=== PATIENT | female | born 1940 | race Caucasian/White ===

== ENCOUNTER 2016-04-28 09:30 | Emergency (ER) | payer MEDICARE, OTHER ==
[~2016-04-28] VITALS: Ht 160 cm; Wt 61.0 kg
[~2016-04-28 09:30] MED LIST: AMLO5 PO; ASPI1TAB69 PO; DORZ2SOL15; LEVO88TA2 PO; LUMI0.01; SIMV10TA PO; TIMO0.5S30; TRAM50TA PO; VALS1TAB70 PO
[2016-04-28 09:33] VITALS: BP 161/88; PULSE 79; RESP 16; TEMP 97.6; O2SAT 100
[2016-04-28] MEDS ORDERED: GUAN2TAB PO (09:52)
[2016-04-28] MEDS ORDERED: NORV2.5T PO (09:52)
[2016-04-28] MEDS ORDERED: NAPR500 PO (09:52)
[2016-04-28] MEDS ORDERED: ROBA500T PO (09:52)
--- NOTE | 2016-04-28 09:57 | PD ---
HPI Chief Complaint: Musculoskeletal Complaint Time Seen by Provider: 09:40 Travel History International Travel<30 days: No Contact w/Intl Traveler<30days: No Traveled to known affect area: No History of Present Illness HPI Patient is a 75-year-old female who presents to emergency room with complaints of left-sided scapula pain and back pain. Patient reports that she has had chronic pain to this area for the past few years, reports that she had similar pains two years ago and the symptoms resolved on its own. Reports that recently , she began to have return of pain to the same area. Reports pain to her left scapula which radiates down her left lower back Reports that she has seen her primary care doctor who had sent her for studies including MRIs, reports that "they can't find why I'm having this much pain to this area." Reports that she did follow up with a card painter who told her that they could not do anything for her pain. Patient reports that pain has been worse over the past weekend, she did go to urgent care yesterday and was prescribed naproxen and ribaxin - reports no relief os symptoms with these medications. Patient reports that she did call her pcp, but no one called her back. Reports no new trauma or no new injuries. Patient denies chest pain/sob. PFSH Past Medical History Hx Anticoagulant Therapy: Yes (81 mg asa) Cancer: No Cardiovascular Problems: Yes (htn) Diabetes: No Glaucoma: No Hepatitis: No Hiatal Hernia: No Hypertension: Yes Respiratory: No Thyroid Disease: Yes Menopausal: Yes Past Surgical History Eye Surgery: Yes (CATARACT EXT LEFT EYE) Pacemaker: No Other Surgery: Yes Social History Alcohol Use: Yes (OCC) Tobacco Use: No Allergies-Medications (Allergen,Severity, Reaction): Coded Allergies: Hayde (Verified Allergy, Severe, HAYDE D-ONLY SUPPRESSES BREATHING, ) Sulfa (Verified Allergy, Severe, COUGHING, SOB, DROWSY, H/A, 04/28/16) Tamiflu (Verified Allergy, Severe, Nausea/Vomiting, 04/28/16) Reported Meds & Prescriptions Reported Meds & Active Scripts Active Reported Naprosyn (Naproxen) 500 Mg Tab 500 Mg PO BID Robaxin (Methocarbamol) 500 Mg Tab 500 Mg PO TID Guanfacine (Guanfacine HCl) 2 Mg Tab 3 Mg PO HS Do not crush, chew or divide tablet. Take with a meal. Norvasc (Amlodipine Besylate) 2.5 Mg Tab 2.5 Mg PO DAILY Simvastatin 10 Mg Tab 10 Mg PO HS Levothyroxine (Levothyroxine Sodium) 88 Mcg Tab 88 Mcg PO DAILY Aspirin 81 Mg Tabdr 81 Mg PO DAILY Tramadol (Tramadol HCl) 50 Mg Tab 50 Mg PO Q4H PRN Valsartan 320 Mg Tab 320 Mg PO DAILY Timolol Opth Drops 0.5 % Soln Lumigan Opth Drops (Bimatoprost) 0.01% Soln Review of Systems General / Constitutional: No: Fever Eyes: No: Visual changes HENT: No: Headaches Cardiovascular: No: Chest Pain or Discomfort, Palpitations, Irregular Rhythm, Tachycardia, Diaphoresis Respiratory: No: Shortness of Breath Gastrointestinal: No: Abdominal Pain Genitourinary: No: Dysuria Musculoskeletal: Positive: Pain (left sided scapula pain/back pain) Skin: No Rash Neurologic: No: Weakness Psychiatric: No: Depression Endocrine: No: Polydipsia Hematologic/Lymphatic: No: Easy Bruising Physical Exam Narrative GENERAL: No acute distress, nontoxic SKIN: Warm and dry. HEAD: Atraumatic. Normocephalic. EYES: Pupils equal and round. No injection or drainage. ENT: No nasal bleeding or discharge. Mucous membranes pink and moist. NECK: Trachea midline. No JVD. CARDIOVASCULAR: Regular rate and rhythm. No murmur appreciated. RESPIRATORY: No accessory muscle use. Clear to auscultation. Breath sounds equal bilaterally. GASTROINTESTINAL: Abdomen soft, non-tender, nondistended. Hepatic and splenic margins not palpable. MUSCULOSKELETAL: No obvious deformities. No clubbing. No cyanosis. No edema. NEUROLOGICAL: Awake and alert. Motor grossly within normal limits. Normal speech. PSYCHIATRIC: Patient anxious on exam Data Data Last Documented VS Vital Signs Date Time Temp Pulse Resp B/P Pulse Ox O2 Delivery O2 Flow Rate FiO2 04/28/16 10:35 74 18 137/74 98 Room Air 04/28/16 09:33 97.6 Orders Chest, Pa & Lat (04/28/16 09:47) Acetamin-Hydrocod 325-5 Mg ([place] 5-325 (04/28/16 10:00) Diazepam (Valium) (04/28/16 10:00) MDM Medical Decision Making Medical Screen Exam Complete: Yes Emergency Medical Condition: Yes Interpretation(s) Vital Signs Date Time Temp Pulse Resp B/P Pulse Ox O2 Delivery O2 Flow Rate FiO2 04/28/16 09:33 97.6 79 16 161/88 100 Differential Diagnosis acute on chronic back pain, aortic dissection, muscle strain Narrative Course Patient is a 75-year-old female with complaints of acute on chronic left-sided scapula pain, back pain. Patient has been having this pain for the past few years, reports that she has been following up with her primary care doctor as well as pain management with no resolution of symptoms. Patient with reports of increased pain over the past few days. Patient with point tenderness to her left scapula, vital signs are stable. Nontoxic on evaluation, patient with most likely musculoskeletal pain. Plan to obtain x-ray of the chest. Will give patient muscle relaxers and pain medications as these have helped in the past with her symptoms. Will continue to monitor patient. Last Impressions Chest X-Ray 04/28/16 0947 Signed Impressions: Service Date/Time: Thursday, April 28, 2016 09:59 - CONCLUSION: No acute disease. No significant change has occurred. Berny Swain MD Patient reevaluated, patient reports that she feels much better. Patient reports complete resolution of symptoms at this time. Patient will follow-up with her primary care doctor and will return to ER as needed. Patient appreciative care. Diagnosis Primary Impression: Muscle strain Additional Impression: Chronic pain Qualified Code: G89.4 - Chronic pain syndrome Patient Instructions: Narcotic given in the ED, General Instructions Med/Other Pt SpecificInfo: Prescription(s) given Scripts Ibuprofen 600 Mg [id number] Mg PO Q6H PRN (Pain/Inflammation) #40 TAB Ref 0 Prov:Monica Laguerre DO 04/28/16 Hydrocodone-Acetaminophen (Lortab)5-325 Mg Tab1 Tab PO Q6H PRN (PAIN) #10 TAB Ref 0 Prov:Monica Laguerre DO 04/28/16 Diazepam (Valium)2 Mg Tab2 Mg PO BID PRN (SPASM) 7 Days Ref 0 Prov:Monica Laguerre DO 04/28/16 Disposition: 01 DISCHARGE HOME Condition: Stable Monica Laguerre DO Apr 28, 2016 09:57
[2016-04-28] MEDS ORDERED: ACETAMINOPHEN/HYDROcodone 325 MG/5 MG TAB PO ONE (10:00)
[2016-04-28] MEDS ORDERED: DIAZEPAM 2 MG TAB PO ONE (10:00)
--- NOTE | 2016-04-28 10:27 | RADHPO ---
EXAM DATE/TIME: 04/28/2016 09:59 [facility] COMPARISON: CHEST SINGLE AP, March 08, 2016, 20:50. INDICATIONS : Left side posterior chest wall pain, no known injury MEDICAL HISTORY : None. SURGICAL HISTORY : None. ENCOUNTER: Initial ACUITY: 4 - 6 days PAIN SCORE: 10/10 LOCATION: Left posterior chest FINDINGS: PA and lateral views of the chest demonstrate the lungs to be symmetrically aerated without evidence of mass, infiltrate or effusion. There is a stable calcified granuloma in the right apex. There is hy peraeration of both lung beard. The cardiomediastinal contours are unremarkable. Osseous structures are intact. No significant changes. CONCLUSION: No acute disease. No significant change has occurred. Berny Swain MD on April 28, 2016 at 10:24 Board Certified Radiologist. This report was verified electronically.
[2016-04-28 10:35] VITALS: BP 137/74; PULSE 74; RESP 18; O2SAT 98
[2016-04-28] MEDS ORDERED: IBUP-232 PO (10:39)
[2016-04-28] MEDS ORDERED: DIAZ2 PO (10:39)
[2016-04-28] MEDS ORDERED: HYDR-3533 PO (10:39)
[2016-05-13] MEDS ORDERED: DORZ2SOL15 LEFT EYE (10:18)
[2016-07-03] MEDS ORDERED: AMLO5TAB2 (08:46)
[2016-07-03] MEDS ORDERED: GUAN1TAB (08:46)
[2016-07-03] MEDS ORDERED: TRAV0.00 (08:46)
[2016-07-03] MEDS ORDERED: TRAM50TA (08:46)
[2016-07-03] MEDS ORDERED: METH500T3 (08:46)
[2016-07-03] MEDS ORDERED: NAPR500T (08:46)
[2016-07-03] MEDS ORDERED: DIAZ2TAB (08:46)
[2016-07-03] MEDS ORDERED: HYDR12.56 (08:46)
[2016-07-03] MEDS ORDERED: GABA300C5 PO (13:02)
[2016-07-03] MEDS ORDERED: LIDO5DIS35 TOPICAL (13:08)
[2016-09-02] MEDS ORDERED: GABA300C5 PO (13:15)
[2016-09-16] MEDS ORDERED: AMLO10TA2 PO (10:30)
[2016-09-16] MEDS ORDERED: ASPI81TA5 PO (10:30)
== END 2016-04-28 10:48 | disposition home or self-care (01) ==
LOC: PHED 09:30
DX: G89.4 Chronic pain syndrome (principal)
CPT/HCPCS: 71020; 99283

== ENCOUNTER 2016-05-10 07:53 | Emergency (ER) | payer MEDICARE, OTHER ==
[~2016-05-10] VITALS: Ht 160 cm; Wt 62.4 kg
[~2016-05-10 07:53] MED LIST changes: -AMLO5 PO; +DIAZ2 PO; -DORZ2SOL15; +GUAN2TAB PO; +HYDR-3533 PO; +IBUP-232 PO; +NAPR500 PO; +NORV2.5T PO; +ROBA500T PO
[2016-05-10 07:56] VITALS: BP 141/83; PULSE 80; RESP 16; TEMP 97.4; O2SAT 100
[2016-05-10 08:11] VITALS: O2SAT 100
[2016-05-10 08:14] VITALS: BP 177/91; PULSE 77; RESP 18; O2SAT 100
[2016-05-10] MEDS ORDERED: ONDANSETRON HCL 4 MG/2 ML VIAL IVP ONE (08:15)
[2016-05-10] MEDS ORDERED: SODIUM CHLORIDE 0.9% FLUSH 5 ML FLUSH IVF PRN (08:15)
[2016-05-10] MEDS ORDERED: DIAZEPAM 5 MG TAB PO ONE (08:15)
[2016-05-10] MEDS ORDERED: SODIUM CHLORID 0.9% 500 ML INJ 500 ML IV ONE (08:15)
[2016-05-10] MEDS ORDERED: MECLIZINE HCL 25 MG TAB PO ONE (08:15)
--- NOTE | 2016-05-10 08:16 | PD ---
HPI Chief Complaint: Dizziness Time Seen by Provider: 08:03 Travel History International Travel<30 days: No Contact w/Intl Traveler<30days: No Traveled to known affect area: No History of Present Illness HPI The patient is a 75-year-old female who presents to the emergency department for dizziness. The patient states her dizziness started yesterday. The dizziness is described as lightheadedness, worse when she turns her head to the left and right, and was associated with one fall yesterday. The patient is unsure if she had a loss of consciousness with her fall yesterday. The patient does state she had an episode of nausea and vomiting with her dizziness yesterday. The patient does have a history of similar symptoms in the past which she states was related to an inner ear problem and treated with medications. The patient does have a history of hypertension and hyperlipidemia , denies any known history of CVA/TIA. The patient denies any difficulty with speech, memory, cognitive skills, upper/lower extremity weakness, numbness, or tingling. The patient's symptoms are intermittent, worse with movement, slightly alleviated at rest. The patient's primary physician is Dr. Roy/ [facility] Past Medical History Hx Anticoagulant Therapy: Yes (BABY ASA DAILY) Cancer: No Cardiovascular Problems: Yes (HTN, CHOL) High Cholesterol: Yes Diabetes: No (PRE) Diminished Hearing: No Glaucoma: No Hepatitis: No Hiatal Hernia: No Hypertension: Yes Respiratory: No Thyroid Disease: Yes ?: Not Menopausal: Yes Past Surgical History Eye Surgery: Yes (CATARACT EXT LEFT EYE) Hysterectomy: No Pacemaker: No Other Surgery: Yes Social History Alcohol Use: No Tobacco Use: No Allergies-Medications (Allergen,Severity, Reaction): Coded Allergies: Hayde (Verified Allergy, Severe, HAYDE D-ONLY SUPPRESSES BREATHING, 01/14) Sulfa (Verified Allergy, Severe, COUGHING, SOB, DROWSY, H/A, 05/10/16) Tamiflu (Verified Allergy, Severe, Nausea/Vomiting, 05/10/16) Reported Meds & Prescriptions Reported Meds & Active Scripts Active Ibuprofen 600 Mg Tab 600 Mg PO Q6H PRN Lortab (Hydrocodone-Acetaminophen) 5-325 Mg Tab 1 Tab PO Q6H PRN Reported Guanfacine (Guanfacine HCl) 2 Mg Tab 3 Mg PO HS Do not crush, chew or divide tablet. Take with a meal. Norvasc (Amlodipine Besylate) 2.5 Mg Tab 2.5 Mg PO DAILY Simvastatin 10 Mg Tab 10 Mg PO HS Levothyroxine (Levothyroxine Sodium) 88 Mcg Tab 88 Mcg PO DAILY Aspirin 81 Mg Tabdr 81 Mg PO DAILY Valsartan 320 Mg Tab 320 Mg PO DAILY Timolol Opth Drops 0.5 % Soln Lumigan Opth Drops (Bimatoprost) 0.01% Soln Review of Systems Except as stated in HPI: all other systems reviewed are Neg HENT: Positive: Lightheadedness Cardiovascular: No: Chest Pain or Discomfort, Palpitations, Tachycardia, Diaphoresis, Dyspnea on exertion Respiratory: No: Shortness of Breath Gastrointestinal: Positive: Nausea, Vomiting, No: Abdominal Pain Musculoskeletal: No: Weakness Neurologic: Positive: Dizziness, No: Weakness, Focal Abnormalities, Coordination Problem, Headache, Change in Mentation, Slurred Speech, Paresthesia , Sensory Disturbance Physical Exam Narrative GENERAL: Awake, alert, pleasant 75-year-old female who appears her stated age and is in no acute respiratory distress. Dizziness elicited with turning her head left and right. SKIN: Warm and dry. HEAD: Atraumatic. Normocephalic. EYES: Pupils equal and round. Pupils are 2 mm bilateral. EOMs are intact. No obvious nystagmus. ENT: No nasal bleeding or discharge. Mucous membranes pink and moist. NECK: Trachea midline. No JVD. CARDIOVASCULAR: Regular rate and rhythm. No murmur appreciated. RESPIRATORY: No accessory muscle use. Clear to auscultation. Breath sounds equal bilaterally. GASTROINTESTINAL: Abdomen soft, non-tender, nondistended. No rebound tenderness. MUSCULOSKELETAL: No obvious deformities. No clubbing. No cyanosis. No edema. NEUROLOGICAL: Awake and alert. No obvious cranial nerve deficits. Motor grossly within normal limits. Normal speech. No dysarthria noted. Alert and oriented 4. No drift of the upper or lower extremities. Smile is symmetric. Sensation is symmetric and equal bilaterally in the face, arms, and legs. Finger to nose is normal. PSYCHIATRIC: Appropriate mood and affect; insight and judgment normal. Data Data Last Documented VS Vital Signs Date Time Temp Pulse Resp B/P Pulse Ox O2 Delivery O2 Flow Rate FiO2 05/10/16 08:58 64 157/76 83 155/74 05/10/16 08:14 Room Air 05/10/16 08:14 18 100 05/10/16 07:56 97.4 Orders Electrocardiogram (05/10/16 08:09) Complete Blood Count With Diff (05/10/16 08:09) Comprehensive Metabolic Panel (05/10/16 08:09) Magnesium (Mg) (05/10/16 08:09) Ckmb (Isoenzyme) Profile (05/10/16 08:09) Troponin I (05/10/16 08:09) Ct Brain W/O Iv Contrast(Rout) (05/10/16 08:09) Ecg Monitoring (05/10/16 08:09) Iv Access Insert/Monitor (05/10/16 08:09) Oximetry (05/10/16 08:09) Meclizine (Antivert) (05/10/16 08:15) Ondansetron Inj (Zofran Inj) (05/10/16 08:15) Sodium Chloride 0.9% Flush (Ns Flush) (05/10/16 08:15) Orthostatic Vital Signs (05/10/16 08:09) Sodium Chlorid 0.9% 500 Ml Inj (Ns 500 M (05/10/16 08:15) Diazepam (Valium) (05/10/16 08:15) Labs Laboratory Tests Test 05/10/16 08:15 White Blood Count 5.4 TH/MM3 Red Blood Count 4.77 MIL/MM3 Hemoglobin 14.8 GM/DL Hematocrit 44.6 % Mean Corpuscular Volume 93.4 FL Mean Corpuscular Hemoglobin 31.0 PG Mean Corpuscular Hemoglobin 33.2 % Concent Red Cell Distribution Width 12.9 % Platelet Count 317 TH/MM3 Mean Platelet Volume 7.5 FL Neutrophils (%) (Auto) 65.4 % Lymphocytes (%) (Auto) 24.3 % Monocytes (%) (Auto) 6.8 % Eosinophils (%) (Auto) 2.2 % Basophils (%) (Auto) 1.3 % Neutrophils # (Auto) 3.5 TH/MM3 Lymphocytes # (Auto) 1.3 TH/MM3 Monocytes # (Auto) 0.4 TH/MM3 Eosinophils # (Auto) 0.1 TH/MM3 Basophils # (Auto) 0.1 TH/MM3 CBC Comment DIFF FINAL Differential Comment Sodium Level 143 MEQ/L Potassium Level 4.1 MEQ/L Chloride Level 106 MEQ/L Carbon Dioxide Level 25.3 MEQ/L Anion Gap 12 MEQ/L Blood Urea Nitrogen 11 MG/DL Creatinine 0.77 MG/DL Estimat Glomerular Filtration 73 ML/MIN Rate Random Glucose 111 MG/DL Calcium Level 9.0 MG/DL Magnesium Level 2.4 MG/DL Total Bilirubin 0.5 MG/DL Aspartate Amino Transf 24 U/L (AST/SGOT) Alanine Aminotransferase 19 U/L (ALT/SGPT) Alkaline Phosphatase 92 U/L Total Creatine Kinase 50 U/L Troponin I LESS THAN 0.02 NG/ML Total Protein 7.4 GM/DL Albumin 3.8 GM/DL MDM Medical Decision Making Medical Screen Exam Complete: Yes Emergency Medical Condition: Yes Medical Record Reviewed: Yes Interpretation(s) EKG reveals normal sinus rhythm with a rate of 70. Left bundle branch block. No significant changes when compared to EKG performed on March 08, 2016. Laboratory Tests Test 05/10/16 08:15 White Blood Count 5.4 TH/MM3 Red Blood Count 4.77 MIL/MM3 Hemoglobin 14.8 GM/DL Hematocrit 44.6 % Mean Corpuscular Volume 93.4 FL Mean Corpuscular Hemoglobin 31.0 PG Mean Corpuscular Hemoglobin 33.2 % Concent Red Cell Distribution Width 12.9 % Platelet Count 317 TH/MM3 Mean Platelet Volume 7.5 FL Neutrophils (%) (Auto) 65.4 % Lymphocytes (%) (Auto) 24.3 % Monocytes (%) (Auto) 6.8 % Eosinophils (%) (Auto) 2.2 % Basophils (%) (Auto) 1.3 % Neutrophils # (Auto) 3.5 TH/MM3 Lymphocytes # (Auto) 1.3 TH/MM3 Monocytes # (Auto) 0.4 TH/MM3 Eosinophils # (Auto) 0.1 TH/MM3 Basophils # (Auto) 0.1 TH/MM3 CBC Comment DIFF FINAL Differential Comment Sodium Level 143 MEQ/L Potassium Level 4.1 MEQ/L Chloride Level 106 MEQ/L Carbon Dioxide Level 25.3 MEQ/L Anion Gap 12 MEQ/L Blood Urea Nitrogen 11 MG/DL Creatinine 0.77 MG/DL Estimat Glomerular Filtration 73 ML/MIN Rate Random Glucose 111 MG/DL Calcium Level 9.0 MG/DL Magnesium Level 2.4 MG/DL Total Bilirubin 0.5 MG/DL Aspartate Amino Transf 24 U/L (AST/SGOT) Alanine Aminotransferase 19 U/L (ALT/SGPT) Alkaline Phosphatase 92 U/L Total Creatine Kinase 50 U/L Troponin I LESS THAN 0.02 NG/ML Total Protein 7.4 GM/DL Albumin 3.8 GM/DL CT the brain reveals mild periventricular and subcortical white matter small vessel ischemic changes bilaterally. No acute infarct, acute hemorrhage, mass effect, or extra-axial fluid collections. Last Impressions Head CT 05/10/16 0809 Signed Impressions: Service Date/Time: Tuesday, May 10, 2016 08:36 - CONCLUSION: 1. Mild periventricular and subcortical white matter small vessel ischemic changes bilaterally. 2. No acute infarct, acute hemorrhage, mass effect or extra- axial fluid collections. Zhou Nye MD Differential Diagnosis Differential diagnosis includes labyrinthitis, Mnire's disease, benign positional vertigo, hyponatremia, CVA, TIA, cerebellar infarct, intracranial hemorrhage, arrhythmia. Narrative Course IV was established, labs were drawn and sent, and the patient was placed on cardiac telemetry monitoring and continuous pulse oximetry monitoring. EKG was ordered and interpreted. Orthostatic vital signs were obtained. The patient was administered 500 cc normal saline bolus, meclizine 25 mg orally, and Valium 5 mg orally. The patient's labs are unremarkable, sodium and hemoglobin/ hematocrit are normal. CT of the brain revealed chronic changes, but no acute infarct or hemorrhage. The patient was reevaluated at 9:18 AM. The patient states her symptoms are improving. The patient may have in her ear problem relating to dizziness such as labyrinthitis and/or positional vertigo. Patient' s neurologic exam is unremarkable, I doubt cerebellar infarct, symptoms started yesterday and CT is normal. The patient be discharged home on meclizine and Valium, is advised to follow-up with her primary physician if symptoms persist for referral to ENT. Return if symptoms significantly worsen or progress. Diagnosis Primary Impression: Dizziness Patient Instructions: General Instructions Additional Instructions: Please provide a patient a copy of her CT results, lab results, and EKG at discharge. Follow-up with her primary physician. No driving or drinking alcohol in medications. Return if symptoms worsen or progress. Med/Other Pt SpecificInfo: Prescription(s) given Scripts Diazepam (Valium)2 Mg Tab2 Mg PO TID PRN (DIZZINESS) #15 TAB Ref 0 Prov:Denis Hanna MD 05/10/16 Meclizine 25 Mg Tab25 Mg PO TID PRN (VERTIGO) #15 TAB Ref 0 Prov:Denis Hanna MD 05/10/16 Disposition: 01 DISCHARGE HOME Condition: Stable Denis Hanna MD May 10, 2016 08:15
[2016-05-10 08:36] LABS: CHLORIDE 106 MEQ/L (98-107); POTASSIUM 4.1 MEQ/L (3.5-5.1); SODIUM (NA) 143 MEQ/L (136-145)
[2016-05-10 08:39] LABS: AUTOMATED NEUTROPHIL # 3.5 TH/MM3 (1.8-7.7); BASOPHIL # 0.1 TH/MM3 (0-0.2); BASOPHIL % 1.3 % (0.0-2.0); EOSINOPHIL # 0.1 TH/MM3 (0-0.4); EOSINOPHIL % 2.2 % (0.0-4.0); HEMATOCRIT 44.6 % (35.0-46.0); HEMO FLAGS DIFF FINAL; LYMPH % 24.3 % (9.0-44.0); LYMPHOCYTE # 1.3 TH/MM3 (1.0-4.8); MEAN CELL VOLUME 93.4 FL (80.0-100.0); MEAN CORPUSCULAR HGB CONC 33.2 % (32.0-36.0); MONO % 6.8 % (0.0-8.0); NEUT % 65.4 % (16.0-70.0); PLATELET COUNT 317 TH/MM3 (150-450); RED BLOOD COUNT 4.77 MIL/MM3 (4.00-5.30); RED CELL DISTRIBUTION WIDTH 12.9 % (11.6-17.2); WHITE BLOOD COUNT 5.4 TH/MM3 (4.0-11.0)
[2016-05-10 08:40] LABS: ANION GAP 12 MEQ/L (5-15); BICARBONATE 25.3 MEQ/L (21.0-32.0); BLOOD UREA NITROGEN 11 MG/DL (7-18); MAGNESIUM 2.4 MG/DL (1.5-2.5)
[2016-05-10 08:43] LABS: ALT (GPT) 19 U/L (10-53); AST (GOT) 24 U/L (15-37); GLOMERULAR FILTRATION RATE 73 ML/MIN (>89)
[2016-05-10 08:45] LABS: TOTAL BILIRUBIN ADULT 0.5 MG/DL (0.2-1.0)
[2016-05-10 08:46] LABS: ALKALINE PHOSPHATASE 92 U/L (45-117)
[2016-05-10 08:52] LABS: CREATINE KINASE 50 U/L (26-192)
[2016-05-10 08:58] VITALS: BP_SYST 155; BP_SYST 157; BP_DIAS 74; BP_DIAS 76
--- NOTE | 2016-05-10 09:13 | RADHPO ---
EXAM DATE/TIME: 05/10/2016 08:36 [facility] COMPARISON: No previous studies available for comparison. INDICATIONS : Dizziness. Fell yesterday. RADIATION DOSE: 61.51 CTDIvol (mGy) MEDICAL HISTORY : Hypertension. Hypothyroidism. SURGICAL HISTORY : None. ENCOUNTER: Initial ACUITY: 1 day PAIN SCALE: 0/10 LOCATION: cranial TECHNIQUE: Multiple contiguous axial images were obtained of the head. Using automated exposure control and adj ustment of the mA and/or kV according to patient size, radiation dose was kept as low as reasonably a chievable to obtain optimal diagnostic quality images. FINDINGS: CEREBRUM: The ventricles are normal for age. No evidence of midline shift, mass lesion, hemorrhage or acute in farction. No extra-axial fluid collections are seen. Mild periventricular and subcortical white jose cruz er small vessel ischemic changes are noted bilaterally. POSTERIOR FOSSA: The cerebellum and brainstem are intact. The 4th ventricle is midline. The cerebellopontine angle i s unremarkable. EXTRACRANIAL: The visualized portion of the orbits is intact. SKULL: The calvaria is intact. No evidence of skull fracture. CONCLUSION: 1. Mild periventricular and subcortical white matter small vessel ischemic changes bilaterally. 2. No acute infarct, acute hemorrhage, mass effect or extra-axial fluid collections. Zhou Nye MD on May 10, 2016 at 9:10 Board Certified Radiologist. This report was verified electronically.
[2016-05-10] MEDS ORDERED: MECL-62 PO (09:26)
[2016-05-10] MEDS ORDERED: DIAZ2 PO (09:26)
[2016-05-10 09:48] VITALS: BP 144/78
--- NOTE | 2016-05-10 21:30 | EKG ---
Date Performed: 05/10/2016 Time Performed: 08:10:28 PTAGE: 75 years EKG: Sinus rhythm Left bundle branch block Since previous tracing, no significant change noted Abnormal ECG PREVIOUS TRACING : 03/08/2016 20.22 DOCTOR: Todd Benitez Interpretating Date/Time 05/10/2016 21:29:31
[2016-05-13] MEDS ORDERED: DORZ2SOL15 LEFT EYE (10:18)
[2016-07-03] MEDS ORDERED: GUAN1TAB (08:46)
[2016-07-03] MEDS ORDERED: TRAV0.00 (08:46)
[2016-07-03] MEDS ORDERED: DIAZ2TAB (08:46)
[2016-07-03] MEDS ORDERED: TRAM50TA (08:46)
[2016-07-03] MEDS ORDERED: HYDR12.56 (08:46)
[2016-07-03] MEDS ORDERED: AMLO5TAB2 (08:46)
[2016-07-03] MEDS ORDERED: NAPR500T (08:46)
[2016-07-03] MEDS ORDERED: METH500T3 (08:46)
[2016-07-03] MEDS ORDERED: GABA300C5 PO (13:02)
[2016-07-03] MEDS ORDERED: LIDO5DIS35 TOPICAL (13:08)
[2016-09-02] MEDS ORDERED: GABA300C5 PO (13:15)
[2016-09-16] MEDS ORDERED: ASPI81TA5 PO (10:30)
[2016-09-16] MEDS ORDERED: AMLO10TA2 PO (10:30)
== END 2016-05-10 09:54 | disposition home or self-care (01) ==
LOC: PHED 07:53
DX: R42 Dizziness and giddiness (principal); I10 Essential (primary) hypertension; E78.5 Hyperlipidemia, unspecified; E78.00 Pure hypercholesterolemia, unspecified; E07.9 Disorder of thyroid, unspecified; R11.2 Nausea with vomiting, unspecified; I44.7 Left bundle-branch block, unspecified; Z79.01 Long term (current) use of anticoagulants; R94.31 Abnormal electrocardiogram [ECG] [EKG]
CPT/HCPCS: 70450; 80053; 82550; 83735; 84484; 85025; 93005; 96374; 99284; J2405; J7040